=== PATIENT | male | born 1970 | race Hispanic/Latino ===

== ENCOUNTER 2021-06-11 09:10 | Day surgery (SDC) | payer BC ==
[2021-06-11] MEDS ORDERED: LACTATED RINGERS 1,000 ML IV SCH (10:30)
[2021-06-11] MEDS ORDERED: ceFAZolin/STERILE WATER 2 GM/20 ML SYRINGE IV NR (10:30)
[2021-06-11] MEDS ORDERED: ONDANSETRON 4 MG/2 ML INJ IV PRN (11:09)
[2021-06-11] MEDS ORDERED: MORPHINE 2 MG/1 ML INJ IV ONE (11:09)
[2021-06-11] MEDS ORDERED: HYDROmorphone 1 MG/1 ML INJ IV PRN ×2 (11:09)
--- NOTE | 2021-06-11 11:10 | Anesthesia Day of Surgery ---
Anesthesia Day of Surgery - Day of Surgery Patient Examined: Yes Patient H&P Reviewed: Yes Patient is NPO: Yes
--- NOTE | 2021-06-11 11:12 | Anesthesia Consultation ---
Anesthesia Consult and Med Hx Date of service: 06/11/21 - Airway Anesthetic Teeth Evaluation: Chipped ROM Head & Neck: Adequate Mental/Hyoid Distance: Adequate Mallampati Class: Class II Intubation Access Assessment: Good - Pre-Operative Health Status ASA Pre-Surgery Classification: ASA3 Proposed Anesthetic Plan: General - Pulmonary Hx Smoking: Yes (SMOKELESS TOBACCO (DIP)) Hx Sleep Apnea: No (TIM PRE SCREEN HIGH RISK) - Cardiovascular System Hx Hypertension: Yes (PT TOOK SELF OFF MEDS X 6 MONTHS) Hx Cardia Arrhythmia: Yes (Afib in 2018; chemical cardioversion and reports in SR) - Central Nervous System Hx Back Pain: Yes (FROM STONE) - Gastrointestinal Hx Gastroesophageal Reflux Disease: No - Endocrine Hx Renal Disease: Yes (Stones) - Hematic Hx Anemia: No - Other Systems Hx Cancer: No Hx Obesity: No
[2021-06-11] MEDS ORDERED: MIDAZOLAM 2 MG/2 ML INJ IV NR (12:00)
[2021-06-11] MEDS ORDERED: propofoL 200 MG/20 ML VIAL IV ONE (12:40)
[2021-06-11] MEDS ORDERED: fentaNYL 100 MCG/2 ML INJ ONE (12:40)
[2021-06-11] MEDS ORDERED: ePHEDrine SULFATE 50 MG/1 ML INJ ONE (13:18)
--- NOTE | 2021-06-11 13:24 | Post Operative Note ---
Date of procedure: 06/11/21 Pre-op diagnosis: r ureteral stone Post-op diagnosis: same Findings: same Procedure: r eswl Surgeon: ANTONINO RICE Estimated blood loss: none Pathology: none Specimen disposition: to lab Condition: stable Disposition: PACU
--- NOTE | 2021-06-11 13:25 | Discharge Summary ---
Short Stay Discharge Plan Activity: other (no straining ) Weight Bearing Status: Full Weight Bearing Diet: regular Special Instructions: other (fluids ) Follow up with: SIVAN RASHID [Other] - 7 Days ANTONINO RICE MD [Staff Physician] - 7 Days
[2021-06-11] MEDS ORDERED: ONDANSETRON 4 MG/2 ML INJ ONE (13:32)
--- NOTE | 2021-06-11 13:45 | Operative Report ---
DATE OF SURGERY: 06/11/2021 PREOPERATIVE DIAGNOSIS: Right mid ureteral stone. POSTOPERATIVE DIAGNOSIS: Right mid ureteral stone. PROCEDURE PERFORMED: Right in situ lithotripsy. SURGEON: Noble Taylor M.D. ANESTHESIA: General. FINDINGS: This is a gentleman with a previous pain. He has no pain now. He now presents for ureteral stone for in situ lithotripsy. All risks and implications discussed. DESCRIPTION OF PROCEDURE: The patient was brought to the operating room and placed on the operating table. Following induction of anesthesia, placed over the F2 focal point. Initially, it was hard to see the stone, but once some of the gas removed, we saw the stone perfectly. Shocks were begun at 1 kV, increased to maximum of 9 kV. We gave 3000 shocks. The patient tolerated the procedure well. No significant complications. Stone was well broken up. We decided not to place a stent. It looked very good. He was brought to recovery room in stable condition. PLAN: He needs followup. He may need further procedures if he does not pass the gravel. Tolerated the procedure well and brought to recovery in stable condition. TID: [id number] RECEIPT: [id number] GILBERT/AGUSTIN
--- NOTE | 2021-06-11 16:19 | Post Anesthesia Evaluation ---
- Post Anesthesia Evaluation Patient Participated: Yes Airway Patent: Yes Stable Respiratory Function: Yes Nausea/Vomiting: No Temp > 96.8F: Yes Pain Manageable: Yes Adequeate Hydration: Yes Anesthesia Complications: No Block Receding Appropriately: Not Applicable Patient on Ventilator: No
[2021-06-11 16:41] VITALS: BP 142/95
--- NOTE | 2021-06-12 10:14 | Electrocardiograph Report ---
[facility] Test Date: 2021-06-11 Test Time: 11:24:57 Pat Name: CRISTHIAN ENGEL Department: Room: Gender: M Gum Sprayer: PANKAJ : 1970 Requested By: ALLEN CRAIG Order Number: [id number] Reading MD: Antonio Leary Measurements Intervals Cuddy Rate: 61 P: 26 AR: 154 QRS: 26 QRSD: 93 T: 30 QT: 421 QTc: 424 Interpretive Statements Sinus rhythm No previous ECG available for comparison Electronically Signed On 06-12-2021 10:13:54 EDT by Antonio Leary
== END 2021-06-11 09:11 | disposition home or self-care (01) ==
LOC: OR 09:10
PROVIDERS: ATTEND Urology
DX: N20.1 Calculus of ureter (principal); I42.9 Cardiomyopathy, unspecified; I48.91 Unspecified atrial fibrillation; I10 Essential (primary) hypertension; Z90.49 Acquired absence of other specified parts of digestive tract; Z79.899 Other long term (current) drug therapy; Z98.890 Other specified postprocedural states
CPT/HCPCS: 50590; 93005; J1170; J2250; J2270; J2405; J2704; J3010; J7120